=== PATIENT | female | born 1935 | race Caucasian/White ===

== ENCOUNTER 2020-08-21 02:18 | Emergency (ER) | payer MEDICARE, OTHER ==
[2020-08-21 03:16] LABS: BASOPHIL 0.7 % (0-2); EOSINOPHIL 3.3 % (0-7); HCT 30.9 % (37.0-47.0); HGB 10.6 g/dl (12.5-16.0); LYMPHOCYTE 31.6 % (15-48); MCH 28.7 pg (25.0-31.0); MCHC 34.3 g/dL (32.0-36.0); MCV 83.7 fL (78.0-100.0); MPV 9.7 fL (6.0-9.5); NEUTROPHIL 55.1 % (41-80); NRBC 0; PLT 253 K/uL (150-400); RBC 3.69 M/uL (4.20-5.40); RDW 13.9 % (11.5-14.0); WBC 9.4 K/uL (4.0-10.5)
[2020-08-21 03:18] LABS: BILIRUBIN NEGATIVE (NEGATIVE); BLOOD TRACE-INTACT Ery/uL (NEGATIVE); CLARITY CLEAR (CLEAR); COLOR YELLOW (YELLOW); GLUCOSE (U) NORMAL (NORMAL); LEUKOCYTES NEGATIVE Leu/uL (NEGATIVE); NITRITE NEGATIVE (NEGATIVE); PROTEIN 3+ mg/dL (NEGATIVE); UROBILINOGEN 0.2 mg/dL (0.2-1.0); pH 7.5 (5.0-9.0)
[2020-08-21 03:19] LABS: INR 1.06 (0.9-1.2); PROTHROMBIN TIME 13.1 SECONDS (11.4-13.6)
[2020-08-21 03:24] LABS: SQUAMOUS EPITHELIAL CELLS RARE
[2020-08-21 03:28] LABS: ALBUMIN 2.9 g/dL (3.4-5.0); BILIRUBIN - TOTAL 0.4 mg/dL (0.2-1.0); BUN/CREAT RATIO (CALC) 18.8 RATIO; CREATININE 0.69 mg/dL (0.51-0.95); GLOBULIN (CALCULATION) 4.2 g/dL; TOTAL PROTEIN 7.1 g/dL (6.4-8.2)
[2020-08-21 03:38] LABS: LACTIC ACID 0.9 mmol/L (0.4-1.9)
[2020-08-21] MEDS ORDERED: BACLOFEN 10MG T10 MG PO (08:54)
== END 2020-08-21 11:30 | disposition home or self-care (01) ==
LOC: FER 02:18
PROVIDERS: Emergency Medicine Emergency Medical Services
DX: I13.0 Hypertensive heart and chronic kidney disease with heart failure and stage 1 through stage 4 chronic kidney disease, or unspecified chronic kidney disease (principal); N18.9 Chronic kidney disease, unspecified; I50.9 Heart failure, unspecified; M62.838 Other muscle spasm; R33.9 Retention of urine, unspecified; I44.0 Atrioventricular block, first degree; R51.9 Headache, unspecified; G30.9 Alzheimer's disease, unspecified; F02.81 Dementia in other diseases classified elsewhere, unspecified severity, with behavioral disturbance; F02.80 Dementia in other diseases classified elsewhere, unspecified severity, without behavioral disturbance, psychotic disturbance, mood disturbance, and anxiety; I48.91 Unspecified atrial fibrillation; N83.8 Other noninflammatory disorders of ovary, fallopian tube and broad ligament; K57.30 Diverticulosis of large intestine without perforation or abscess without bleeding; R60.0 Localized edema; Z91.81 History of falling; Z79.82 Long term (current) use of aspirin; Z20.822 Contact with and (suspected) exposure to COVID-19
CPT/HCPCS: 36415; 70450; 71250; 72125; 73030; 73090; 80053; 81001; 83605; 83735; 83880; 84145; 84484; 85025; 85610; 85730; 87088; 93005; 96374; 96375; J0360; J3360; J3490; J7120; U0002

== ENCOUNTER 2021-07-23 20:09 | Emergency (ER) | payer MEDICARE, OTHER ==
[~2021-07-23 20:09] MED LIST: BACLOFEN 10MG T10 MG PO
[2021-07-23 20:48] LABS: BASOPHIL 0.6 % (0-2); EOSINOPHIL 4.9 % (0-7); HCT 29.7 % (37.0-47.0); HGB 9.9 g/dl (12.5-16.0); LYMPHOCYTE 16.2 % (15-48); MCH 29.6 pg (25.0-31.0); MCHC 33.3 g/dL (32.0-36.0); MCV 88.7 fL (78.0-100.0); MONOCYTE 7.3 % (0-12); MPV 9.6 fL (6.0-9.5); NEUTROPHIL 70.7 % (41-80); NRBC 0; PLT 229 K/uL (150-400); RBC 3.35 M/uL (4.20-5.40); RDW 13.2 % (11.5-14.0); WBC 9.9 K/uL (4.0-10.5)
[2021-07-23 21:09] LABS: ALBUMIN 3.4 g/dL (3.4-5.0); BILIRUBIN - TOTAL 0.3 mg/dL (0.2-1.0); BUN/CREAT RATIO (CALC) 46.8 RATIO; CREATININE 1.09 mg/dL (0.51-0.95); GLOBULIN (CALCULATION) 4.3 g/dL; POTASSIUM 4.6 mmol/L (3.5-5.1); TOTAL PROTEIN 7.7 g/dL (6.4-8.2)
[2021-07-24] MEDS ORDERED: ZPAK PO (00:02)
== END 2021-07-24 01:20 | disposition home or self-care (01) ==
LOC: FER 20:09
PROVIDERS: Emergency Medicine
DX: J18.9 Pneumonia, unspecified organism (principal); I11.0 Hypertensive heart disease with heart failure; I50.9 Heart failure, unspecified; R07.89 Other chest pain; Z88.5 Allergy status to narcotic agent; Z88.8 Allergy status to other drugs, medicaments and biological substances; Z88.1 Allergy status to other antibiotic agents; Z79.82 Long term (current) use of aspirin
CPT/HCPCS: 36415; 71045; 80053; 83880; 84484; 85025; 93005; J0696; J1940

== ENCOUNTER 2021-08-19 21:40 | Day surgery (SDCO) | payer MEDICARE, OTHER ==
[~2021-08-19] VITALS: Ht 157.5 cm; Wt 70.6 kg
[~2021-08-19 21:40] MED LIST changes: +ZPAK PO
[2021-08-19 22:25] LABS: BASOPHIL 0.7 % (0-2); HCT 28.7 % (37.0-47.0); HGB 9.4 g/dl (12.5-16.0); LYMPHOCYTE 12.9 % (15-48); MCHC 32.8 g/dL (32.0-36.0); MCV 85.4 fL (78.0-100.0); MONOCYTE 10.7 % (0-12); MPV 10.1 fL (6.0-9.5); NRBC 0; PLT 285 K/uL (150-400); RBC 3.36 M/uL (4.20-5.40); RDW 12.9 % (11.5-14.0); WBC 9.7 K/uL (4.0-10.5)
[2021-08-19 22:53] LABS: INR 1.05 (0.9-1.2); PROTHROMBIN TIME 13.1 SECONDS (11.8-13.4)
[2021-08-19 22:54] LABS: PTT 47.5 SECONDS (24.4-34.7)
[2021-08-19 23:03] LABS: ALBUMIN 3.2 g/dL (3.4-5.0); BILIRUBIN - TOTAL 0.3 mg/dL (0.2-1.0); BUN/CREAT RATIO (CALC) 42.1 RATIO; CREATININE 1.33 mg/dL (0.51-0.95); GLOBULIN (CALCULATION) 4.5 g/dL; POTASSIUM 4.2 mmol/L (3.5-5.1); TOTAL PROTEIN 7.7 g/dL (6.4-8.2)
[2021-08-19 23:31] LABS: LACTIC ACID 0.6 mmol/L (0.4-1.9)
[2021-08-19 23:53] LABS: BILIRUBIN NEGATIVE (NEGATIVE); BLOOD NEGATIVE Ery/uL (NEGATIVE); CLARITY CLEAR (CLEAR); COLOR YELLOW (YELLOW); GLUCOSE (U) NORMAL (NORMAL); LEUKOCYTES NEGATIVE Leu/uL (NEGATIVE); NITRITE NEGATIVE (NEGATIVE); PROTEIN TRACE (LOW) mg/dL (NEGATIVE); UROBILINOGEN 0.2 mg/dL (0.2-1.0)
[2021-08-20 00:02] LABS: BACTERIA TRACE
[2021-08-20 00:27] LABS: CORONAVIRUS 2019 SARS-COV-2 NEGATIVE (NEGATIVE); INFLUENZA A NAA NEGATIVE (NEGATIVE)
[2021-08-20] MEDS ORDERED: VENTOLIN HFA IN18 GM INH (04:16)
[2021-08-20] MEDS ORDERED: ALENDRONATE SOD35 MG PO (04:18)
[2021-08-20] MEDS ORDERED: ANASTROZOLE1 MG PO (04:19)
[2021-08-20] MEDS ORDERED: ARICEPT 5MG TABL5 MG PO (04:20)
[2021-08-20] MEDS ORDERED: AZELASTINE205.5 MCG/ (04:21)
[2021-08-20] MEDS ORDERED: BACLOFEN 10MG T10 MG PO ×2 (04:22→04:23)
[2021-08-20] MEDS ORDERED: ANBESOL9 GM TOP (04:26)
[2021-08-20] MEDS ORDERED: ALPHAGAN 020 DROPS/M OU (04:28)
[2021-08-20] MEDS ORDERED: VOLTAREN ARTHRI20 GM TOP (04:29)
[2021-08-20] MEDS ORDERED: FEOSOL325 MG PO (04:30)
[2021-08-20] MEDS ORDERED: FLORASTOR250 MG PO (04:31)
[2021-08-20] MEDS ORDERED: MIRALAX17 GM PO (04:32)
[2021-08-20] MEDS ORDERED: HYDRALAZINE25 MG PO (04:34)
[2021-08-20] MEDS ORDERED: ZESTRIL5 MG PO (04:35)
[2021-08-20] MEDS ORDERED: FUROSEMIDE 20MG20 MG PO (04:35)
[2021-08-20] MEDS ORDERED: CLARITIN10 MG PO (04:36)
[2021-08-20] MEDS ORDERED: LOPRESSOR25 MG PO (04:37)
[2021-08-20 06:19] LABS: BASOPHIL 0.6 % (0-2); EOSINOPHIL 5.2 % (0-7); HCT 25.6 % (37.0-47.0); HGB 8.3 g/dl (12.5-16.0); LYMPHOCYTE 22.8 % (15-48); MCH 27.9 pg (25.0-31.0); MCHC 32.4 g/dL (32.0-36.0); MCV 85.9 fL (78.0-100.0); MONOCYTE 11.6 % (0-12); MPV 9.6 fL (6.0-9.5); NEUTROPHIL 58.9 % (41-80); NRBC 0; PLT 240 K/uL (150-400); RBC 2.98 M/uL (4.20-5.40); RDW 12.8 % (11.5-14.0); RETICULOCYTE COUNT 1.5 % (1.0-2.0); WBC 8.1 K/uL (4.0-10.5)
[2021-08-20 06:41] LABS: BUN/CREAT RATIO (CALC) 37.1 RATIO; C-REACTIVE PROTEIN 7.9 mg/dL (<=0.90); CREATININE 1.4 mg/dL (0.51-0.95); MAGNESIUM 1.8 mg/dL (1.8-2.4); POTASSIUM 3.8 mmol/L (3.5-5.1)
--- NOTE | 2021-08-20 14:40 | NUR ---
08/20 Patient is from [facility]. They will accept her back.
[2021-08-21 08:21] LABS: BASOPHIL 0.3 % (0-2); EOSINOPHIL 0.2 % (0-7); HCT 28.3 % (37.0-47.0); HGB 9.8 g/dl (12.5-16.0); LYMPHOCYTE 10.4 % (15-48); MCH 28.4 pg (25.0-31.0); MCHC 34.6 g/dL (32.0-36.0); MONOCYTE 2.5 % (0-12); MPV 10.2 fL (6.0-9.5); NEUTROPHIL 83.5 % (41-80); NRBC 0; PLT 249 K/uL (150-400); RBC 3.45 M/uL (4.20-5.40); RDW 12.7 % (11.5-14.0); WBC 15.4 K/uL (4.0-10.5)
[2021-08-21 08:56] LABS: BUN/CREAT RATIO (CALC) 39.4 RATIO; CREATININE 1.04 mg/dL (0.51-0.95); POTASSIUM 4.7 mmol/L (3.5-5.1)
[2021-08-22] MEDS ORDERED: MUCINEX 600MG600 MG PO (14:36)
[2021-08-22] MEDS ORDERED: ZYVOX600 MG PO (14:36)
[2021-08-22] MEDS ORDERED: TESSALON PERLE100 MG PO (14:36)
== END 2021-08-22 17:22 ==
LOC: FER 21:40 → FMS 08-20 02:40
PROVIDERS: Internal Medicine; Nurse Practitioner Acute Care; ADMIT Internal Medicine
DX: J15.212 Pneumonia due to Methicillin resistant Staphylococcus aureus (principal); L03.116 Cellulitis of left lower limb; N17.9 Acute kidney failure, unspecified; D50.9 Iron deficiency anemia, unspecified; J20.9 Acute bronchitis, unspecified; J44.0 Chronic obstructive pulmonary disease with (acute) lower respiratory infection; J44.1 Chronic obstructive pulmonary disease with (acute) exacerbation; I13.0 Hypertensive heart and chronic kidney disease with heart failure and stage 1 through stage 4 chronic kidney disease, or unspecified chronic kidney disease; N18.9 Chronic kidney disease, unspecified; I50.9 Heart failure, unspecified; E87.1 Hypo-osmolality and hyponatremia; J98.11 Atelectasis; I25.10 Atherosclerotic heart disease of native coronary artery without angina pectoris; G30.9 Alzheimer's disease, unspecified; F02.80 Dementia in other diseases classified elsewhere, unspecified severity, without behavioral disturbance, psychotic disturbance, mood disturbance, and anxiety; Z88.5 Allergy status to narcotic agent; Z88.6 Allergy status to analgesic agent; Z20.822 Contact with and (suspected) exposure to COVID-19
CPT/HCPCS: 36415; 71250; 80048; 80053; 81001; 83540; 83550; 83605; 83690; 83735; 83880; 84145; 84484; 85025; 85610; 85730; 86140; 87040; 87070; 87077; 87186; 87205; 93005; 94010; 94640; 94760; 94762; 96365; 96375; 97110; 97162; 97167; 97530; 97530-GP; G0378; J0696; J2270; J2405; J2543; J2930; J3010; J3370; J7040; J7050; U0002

== ENCOUNTER 2021-08-29 16:54 | Day surgery (SDCO) | payer MEDICARE, OTHER ==
[~2021-08-29] VITALS: Ht 157.5 cm; Wt 65.3 kg
[~2021-08-29 16:54] MED LIST changes: +ALENDRONATE SOD35 MG PO; +ALPHAGAN 020 DROPS/M OU; +ANASTROZOLE1 MG PO; +ANBESOL9 GM TOP; +ARICEPT 5MG TABL5 MG PO; +AZELASTINE205.5 MCG/; +CLARITIN10 MG PO; +FEOSOL325 MG PO; +FLORASTOR250 MG PO; +FUROSEMIDE 20MG20 MG PO; +HYDRALAZINE25 MG PO; +LOPRESSOR25 MG PO; +MIRALAX17 GM PO; +MUCINEX 600MG600 MG PO; +TESSALON PERLE100 MG PO; +VENTOLIN HFA IN18 GM INH; +VOLTAREN ARTHRI20 GM TOP; +ZESTRIL5 MG PO; +ZYVOX600 MG PO
[2021-08-29 19:47] LABS: BASOPHIL 0.7 % (0-2); EOSINOPHIL 3.4 % (0-7); HCT 30.1 % (37.0-47.0); HGB 9.7 g/dl (12.5-16.0); LYMPHOCYTE 28.2 % (15-48); MCH 28.4 pg (25.0-31.0); MCHC 32.2 g/dL (32.0-36.0); MONOCYTE 10.5 % (0-12); MPV 9.3 fL (6.0-9.5); NEUTROPHIL 56.5 % (41-80); NRBC 0; PLT 227 K/uL (150-400); RBC 3.42 M/uL (4.20-5.40); RDW 13.4 % (11.5-14.0); WBC 7.4 K/uL (4.0-10.5)
[2021-08-29 19:58] LABS: INR 1.57 (0.9-1.2); PTT 58.4 SECONDS (24.4-34.7)
[2021-08-29 19:59] LABS: D-DIMER 0.79 ug/mLFEU (0.00-0.41)
[2021-08-29 20:11] LABS: LACTIC ACID 0.3 mmol/L (0.4-1.9)
[2021-08-29 20:36] LABS: ALBUMIN 2.7 g/dL (3.4-5.0); ALKALINE PHOSHATASE 68 U/L (46-116); ALT 16 U/L (14-59); AST 17 U/L (15-37); BILIRUBIN - TOTAL 0.3 mg/dL (0.2-1.0); BUN 27 mg/dL (7-18); BUN/CREAT RATIO (CALC) 30.7 RATIO; CHLORIDE 107 mmol/L (98-107); CO2 (BICARBONATE) 24 mmol/L (21-32); CREATININE 0.88 mg/dL (0.51-0.95); GLOBULIN (CALCULATION) 3.4 g/dL; GLUCOSE 93 mg/dL (74-106); MAGNESIUM 1.8 mg/dL (1.8-2.4); TOTAL PROTEIN 6.1 g/dL (6.4-8.2)
[2021-08-29 20:50] LABS: C-REACTIVE PROTEIN < 0.20 mg/dL (<=0.90)
[2021-08-29 22:47] LABS: CORONAVIRUS 2019 SARS-COV-2 NEGATIVE (NEGATIVE); INFLUENZA A NAA NEGATIVE (NEGATIVE)
[2021-08-29 23:25] LABS: BILIRUBIN NEGATIVE (NEGATIVE); BLOOD 3+ Ery/uL (NEGATIVE); CLARITY CLEAR (CLEAR); COLOR YELLOW (YELLOW); GLUCOSE (U) NORMAL (NORMAL); LEUKOCYTES NEGATIVE Leu/uL (NEGATIVE); NITRITE NEGATIVE (NEGATIVE); PROTEIN 2+ mg/dL (NEGATIVE); SPECIFIC GRAVITY 1.015 (1.001-1.030); UROBILINOGEN 0.2 mg/dL (0.2-1.0)
[2021-08-29 23:42] LABS: URINARY RBC TNTC
[2021-08-29 23:43] LABS: SQUAMOUS EPITHELIAL CELLS RARE; YEAST PRESENT
[2021-08-29 23:44] LABS: BACTERIA 1+
--- NOTE | 2021-08-30 13:15 | NUR ---
08/30/21 Ms. Rose was admitted from [facility]. They will accept her back. A new COVID test is required.
[2021-08-31 06:58] LABS: ALBUMIN 2.6 g/dL (3.4-5.0); ALKALINE PHOSHATASE 69 U/L (46-116); ALT 17 U/L (14-59); AST 16 U/L (15-37); BILIRUBIN - TOTAL 0.3 mg/dL (0.2-1.0); BUN 21 mg/dL (7-18); BUN/CREAT RATIO (CALC) 25.6 RATIO; CHLORIDE 108 mmol/L (98-107); CO2 (BICARBONATE) 23 mmol/L (21-32); CREATININE 0.82 mg/dL (0.51-0.95); GLOBULIN (CALCULATION) 3.4 g/dL; GLUCOSE 93 mg/dL (74-106); POTASSIUM 3.9 mmol/L (3.5-5.1)
[2021-08-31] MEDS ORDERED: TRAMADOL HCL50 MG PO (07:38)
[2021-08-31] MEDS ORDERED: MOBIC7.5 MG PO (07:38)
[2021-08-31] MEDS ORDERED: COZAAR50 MG PO (07:40)
[2021-08-31 09:02] LABS: BASOPHIL 0.6 % (0-2); EOSINOPHIL 5.7 % (0-7); HCT 28.8 % (37.0-47.0); HGB 9.1 g/dl (12.5-16.0); LYMPHOCYTE 25.2 % (15-48); MCH 28.2 pg (25.0-31.0); MCHC 31.6 g/dL (32.0-36.0); MCV 89.2 fL (78.0-100.0); MONOCYTE 11.8 % (0-12); MPV 9.8 fL (6.0-9.5); NEUTROPHIL 56.5 % (41-80); NRBC 0; PLT 209 K/uL (150-400); RBC 3.23 M/uL (4.20-5.40); RDW 13.9 % (11.5-14.0); WBC 6.2 K/uL (4.0-10.5)
== END 2021-08-31 12:22 ==
LOC: FER 16:54 → FMS 08-30 00:28
PROVIDERS: Allergy & Immunology Allergy; Emergency Medicine; Hospitalist; Internal Medicine; ADMIT Internal Medicine
DX: R07.89 Other chest pain (principal); K82.9 Disease of gallbladder, unspecified; I13.0 Hypertensive heart and chronic kidney disease with heart failure and stage 1 through stage 4 chronic kidney disease, or unspecified chronic kidney disease; I50.9 Heart failure, unspecified; N18.9 Chronic kidney disease, unspecified; I25.10 Atherosclerotic heart disease of native coronary artery without angina pectoris; J44.9 Chronic obstructive pulmonary disease, unspecified; E78.5 Hyperlipidemia, unspecified; M51.35 Other intervertebral disc degeneration, thoracolumbar region; G30.9 Alzheimer's disease, unspecified; F02.80 Dementia in other diseases classified elsewhere, unspecified severity, without behavioral disturbance, psychotic disturbance, mood disturbance, and anxiety; F41.9 Anxiety disorder, unspecified; R29.6 Repeated falls; Z20.822 Contact with and (suspected) exposure to COVID-19; Z66 Do not resuscitate; Z79.82 Long term (current) use of aspirin; Z79.899 Other long term (current) drug therapy; Z88.5 Allergy status to narcotic agent; Z88.8 Allergy status to other drugs, medicaments and biological substances; Z82.49 Family history of ischemic heart disease and other diseases of the circulatory system
CPT/HCPCS: 36415; 71250; 71275; 76705; 80053; 81001; 83605; 83690; 83735; 83880; 84145; 84443; 84484; 85025; 85379; 85610; 85730; 86140; 87040; 93005; 94010; G0378; J1650; J7030; Q9967; U0002